=== PATIENT | female | born 1960 | race Caucasian/White ===

== ENCOUNTER 2018-09-04 16:38 | Emergency (ER) | payer BC, SELFPAY ==
[2018-09-04 16:49] VITALS: BP 103/66; PULSE 76; RESP 17; TEMP 36.8; O2SAT 97; BMI 23.3
--- NOTE | 2018-09-04 19:55 | ED_ITS ---
HPI - Dental/Oral <Lily Brizuela PA-C - Last Filed: 09/04/18 22:42> General Chief complaint: Dental/Oral Stated complaint: Swellinh of rt side of face Time Seen by Provider: 09/04/18 19:10 Source: patient Mode of arrival: ambulatory Limitations: no limitations History of Present Illness HPI Narrative: This 57-year-old female comes in due to swelling in her left cheek, thinks this is a dental infection. She states that 3 days ago she began to have aching in her left upper teeth. She was en route moving here, and took some [id number] pain medicine. Yesterday, she started to notice swelling in the maxillary area and today this has worsened covering her cheek. She thinks this is due to an abscess. She states that she has a history of sinus abscess in surgery and this does not feel the same. She states maybe she felt a little warm earlier but has not had any chills or sweats, no known fever. Teeth are tender with trying to bite down her. She denies any earache or sore throat. She has not had any recent cough or illness. She does not have a local PCP or dentist yet Related Data Previous Rx's Medication Instructions Recorded amoxicillin-pot clavulanate 1 tab PO Q12H #14 tab 09/04/18 [Augmentin] Review of Systems <Lily Brizuela PA-C - Last Filed: 09/04/18 22:42> Review of Systems ROS Unobtainable: All systems reviewed & are unremarkable except as noted in HPI and below PFSH <Lily Brizuela PA-C - Last Filed: 09/04/18 22:42> Medical History Fibromyalgia (Chronic) Surgical History History of (Resolved) History of sinus surgery (Resolved) Social History Smoking Status: Never smoker Social History Smoking Status: Never smoker Exam <Lily Brizuela PA-C - Last Filed: 09/04/18 22:42> Narrative Exam Narrative: GENERAL APPEARANCE: Patient sitting comfortably, in no distress. HEAD: No sinus TTP. There is generalized edema over the left maxilla to the mandible which is tender. No localized fluctuance. Skin is non erythematous, cool to touch. Tender with opening the jaw EYES: PERRL, EOMI. EARS: Normal auditory canals, TMS intact with normal light reflexes. ORAL CAVITY: Normal oropharynx, some poor and broken dentition. Erythema and tenderness at the left posterior molar around the gum line, no clear abscess or localized area of fluctuance. THROAT: Clear. NECK/THYROID: Neck supple, full range of motion, no cervical lymphadenopathy. LUNGS: Clear to auscultation bilaterally, clear to percussion, no cough on exam. HEART: RRR without murmur, nl S1, S2, no S3 or S4. Initial Vital Signs Initial Vital Signs: Vital Signs Temperature 98.2 F 09/04/18 16:49 Pulse Rate 76 09/04/18 16:49 Respiratory Rate 17 09/04/18 16:49 Blood Pressure 103/66 09/04/18 16:49 Pulse Oximetry 97 09/04/18 16:49 <DO Jenny Long Last Filed: 09/04/18 22:56> Initial Vital Signs Initial Vital Signs: Vital Signs Temperature 98.2 F 09/04/18 16:49 Pulse Rate 76 09/04/18 16:49 Respiratory Rate 17 09/04/18 16:49 Blood Pressure 103/66 09/04/18 16:49 Pulse Oximetry 97 09/04/18 16:49 Course <Lily Brizuela PA-C - Last Filed: 09/04/18 22:42> Additional Information: Patient is not set up with any local care providers yet and agreed to return to ED if any acutely worsening symptoms. She agrees to start antibiotic right away Vital Signs - 8 hr 09/04/18 16:49 Temperature 98.2 F Pulse Rate 76 Respiratory Rate 17 Blood Pressure 103/66 Pulse Oximetry 97 <DO Jenny Long Last Filed: 09/04/18 22:56> Vital Signs - 8 hr 09/04/18 16:49 Temperature 98.2 F Pulse Rate 76 Respiratory Rate 17 Blood Pressure 103/66 Pulse Oximetry 97 Discharge Plan Departure Patient Disposition: Home Clinical Impression: Dental abscess Discharge Date/Time: 09/04/18 19:51 Interventions: ED Discharge Assessment Last Done: 09/04/18 19:51 Instructions: DI for Dental Pain Activity Restrictions/Additional Instructions: I suspect that you have an abscess (or at least a dental infection) causing her swelling, although I did not see a circumscribed abscess around her gum line (you do have inflammation). Please return to the closest ED over the weekend if you have acutely worsening swelling or new symptoms such as fever, as it will take the antibiotics 48-72 hours to start having full effect. Please take 2 Aleve every 12 hr to help with pain and inflammation. You can add Tylenol in addition to this as needed as well as your Orajel and saltwater rinses. Please start the antibiotic as soon as you pick it up. Take the next dose early tomorrow morning. Prescriptions: New amoxicillin-pot clavulanate [Augmentin] 875-125 mg tablet 1 tab PO Q12H Qty: 14 RF: 0 <Hernan Pickens DO - Last Filed: 09/04/18 22:56> [facility] [place] [facility] [place]ending Cristian Attestation: I was available for consultation during this patient's emergency department encounter
== END 2018-09-04 19:51 | disposition home or self-care (01) ==
PROVIDERS: Emergency Provider Internal Medicine
DX: K04.7 Periapical abscess without sinus (principal)
CPT/HCPCS: 99282